=== PATIENT | male | born 1990 | race Caucasian/White ===

== ENCOUNTER 2022-02-04 16:22 | Emergency (ER) | payer BC ==
[2022-02-04 16:56] LABS: HEMOGLOBIN 17.2 gm/dl (14.0-17.5); RED BLOOD COUNT 5.64 M/UL (4.20-5.50)
[2022-02-04 17:48] LABS: BUN/CREATININE RATIO 9 (0-10)
== END 2022-02-04 22:33 | disposition home or self-care (01) ==
LOC: ER1 16:22
PROVIDERS: Emergency Medicine
DX: R07.89 Other chest pain (principal)
CPT/HCPCS: 71045; 80053; 82550; 82553; 84484; 85025; 93005; 99285